=== PATIENT | female | born 1955 | race Caucasian/White ===

== ENCOUNTER → 2016-09-23 | Outpatient (CLI) | payer MEDICARE, BC ==
--- NOTE | 2016-09-24 07:46 | MM ---
Reason for exam: screening (asymptomatic). Last mammogram was performed 1 year and 3 months ago. History: Patient is postmenopausal. Family history of breast cancer in maternal cousin and breast cancer in maternal aunt at age 58. Took hormonal contraceptives for 9 years beginning at age 19. Physical Findings: A clinical breast exam by your physician is recommended on an annual basis and results should be correlated with mammographic findings. MG 3D Screening Mammo W/Cad Bilateral CC and MLO view(s) were taken. XCCL view(s) were taken of the right breast. Prior study comparison: June 27, 2015, left breast MG 3d work up w/cad LT. June 24, 2015, bilateral MG screening mammo w CAD. There are scattered fibroglandular densities. There is no discrete abnormality. No significant changes when compared with prior studies. ASSESSMENT: Negative, BI-RAD 1 RECOMMENDATION: Routine screening mammogram of both breasts in 1 year.
== END | disposition home or self-care (01) ==
LOC: RADMAMWWP 14:28
PROVIDERS: ATTEND Family Medicine
DX: Z12.31 Encounter for screening mammogram for malignant neoplasm of breast (principal)
CPT/HCPCS: 77063; G0202

== ENCOUNTER → 2016-12-08 | Outpatient (CLI) | payer MEDICARE, BC ==
--- NOTE | 2016-12-08 15:18 | XR ---
Cervical spine HISTORY: Neck pain 5 views of the cervical spine on 6 images No comparisons There is loss of normal cervical lordosis. Minimal retrolisthesis grade 1 at C5-6. There is loss of d isc height at C5-6, multilevel spondylosis is present. Cervical vertebral bodies show preserved heigh t. Bone mineralization is mildly reduced. No evident foraminal encroachment. IMPRESSION: Degenerative disc disease. Osteopenia.
--- NOTE | 2016-12-08 15:30 | XR ---
Thoracic spine HISTORY: Back pain 3 views of the thoracic spine on 5 images No comparisons There is a slight spinal curvature. Multilevel spondylosis is present. Bone mineralization is reduced . Thoracic vertebral bodies show preserved height. IMPRESSION: Osteopenia and degenerative disc disease. Slight spinal curvature.
== END | disposition home or self-care (01) ==
LOC: RADXRMAIN 12:05
PROVIDERS: ATTEND Physician Assistant
DX: M50.30 Other cervical disc degeneration, unspecified cervical region (principal); M85.88 Other specified disorders of bone density and structure, other site; M51.34 Other intervertebral disc degeneration, thoracic region
CPT/HCPCS: 72050; 72072

== ENCOUNTER → 2018-01-13 | Outpatient (CLI) | payer MEDICARE, BC ==
--- NOTE | 2018-01-16 11:04 | MM ---
Reason for exam: screening (asymptomatic). Last mammogram was performed 1 year and 4 months ago. History: Patient is postmenopausal. Family history of breast cancer in maternal cousin and breast cancer in maternal aunt at age 58. Took hormonal contraceptives for 9 years beginning at age 19. Physical Findings: A clinical breast exam by your physician is recommended on an annual basis and results should be correlated with mammographic findings. MG 3D Screening Mammo W/Cad Bilateral CC and MLO view(s) were taken. Prior study comparison: September 23, 2016, bilateral MG 3d screening mammo w/cad. June 27, 2015, left breast MG 3d work up w/cad LT. There are scattered fibroglandular densities. No significant changes when compared with prior studies. ASSESSMENT: Negative, BI-RAD 1 RECOMMENDATION: Routine screening mammogram of both breasts in 1 year.
== END | disposition home or self-care (01) ==
LOC: RADMAMWWP 10:03
PROVIDERS: ATTEND Family Medicine
DX: Z12.31 Encounter for screening mammogram for malignant neoplasm of breast (principal)
CPT/HCPCS: 77063; 77067

== ENCOUNTER → 2019-01-24 | Outpatient (CLI) | payer MEDICARE ==
--- NOTE | 2019-01-26 13:40 | MM ---
Reason for exam: screening (asymptomatic). Last mammogram was performed 1 year ago. History: Patient is postmenopausal. Family history of breast cancer in maternal cousin and breast cancer in maternal aunt at age 58. Took hormonal contraceptives for 9 years beginning at age 19. Physical Findings: A clinical breast exam by your physician is recommended on an annual basis and results should be correlated with mammographic findings. MG 3D Screening Mammo W/Cad Bilateral CC and MLO view(s) were taken. Prior study comparison: January 13, 2018, bilateral MG 3d screening mammo w/cad. September 23, 2016, bilateral MG 3d screening mammo w/cad. The breast tissue is heterogeneously dense. This may lower the sensitivity of mammography. No significant changes when compared with prior studies. ASSESSMENT: Benign, BI-RAD 2 RECOMMENDATION: Routine screening mammogram of both breasts in 1 year.
== END | disposition home or self-care (01) ==
LOC: RADMAMWWP 13:30
PROVIDERS: ATTEND Family Medicine
DX: Z12.31 Encounter for screening mammogram for malignant neoplasm of breast (principal)
CPT/HCPCS: 77063; 77067

== ENCOUNTER 2019-03-18 18:36 | Emergency (ER) | payer MEDICARE ==
[2019-03-18 18:46] VITALS: RESP 18
[2019-03-18] MEDS ORDERED: FAMOTIDINE 20 MG/2 ML VIAL IV STA (19:16)
[2019-03-18] MEDS ORDERED: methylPREDNISolone SOD SUCCI 125 MG/2 ML VIAL IV STA (19:16)
--- NOTE | 2019-03-18 19:26 | ED ---
Allergic Reaction HPI - General Chief complaint: Allergic Reaction Stated complaint: bee sting near eye Time Seen by Provider: 03/18/19 19:04 Source: patient, RN notes reviewed Mode of arrival: ambulatory Limitations: no limitations - History of Present Illness Initial Comments: This is a 63-year-old female who states she was stung in the right inferior orbit by a bee just prior to admission she took some Benadryl which she complains some swelling and redness to the area as well as some raspiness to her voice. No difficulty breathing no fevers chills nausea vomiting sweats palpitations or other symptoms. She states she has had bad bee sting reactions in the past. MD Complaint: allergic reaction - Related Data Home Medications Medication Instructions Recorded Confirmed ALPRAZolam 0.25 mg PO TID PRN 06/25/14 03/18/19 Cholecalciferol [Vitamin D3] 1,000 unit PO DAILY@1200 05/09/15 03/18/19 Albuterol Inhaler [Ventolin Hfa 1 - 2 puff INHALATION RT-Q6H PRN 03/18/19 03/18/19 Inhaler] Albuterol Nebulized [Ventolin 2.5 mg INHALATION RT-Q4H PRN 03/18/19 03/18/19 Nebulized] diphenhydrAMINE [Benadryl] 25 mg PO ONCE PRN 03/18/19 03/18/19 Previous Rx's Medication Instructions Recorded Famotidine [Pepcid] 20 mg PO BID #10 tablet 03/18/19 methylPREDNISolone Dose Pack 4 mg PO DIRECTED #21 package 03/18/19 [Medrol Dose Pack] Allergies Allergy/AdvReac Type Severity Reaction Status Date / Time ciprofloxacin [From Cipro] Allergy Rash/Hives Verified 03/18/19 19:06 ciprofloxacin HCl Allergy Rash/Hives Verified 03/18/19 19:06 [From Cipro] azithromycin [From Zithromax] AdvReac Rash/Hives Verified 03/18/19 19:06 egg AdvReac Rash/Hives Verified 03/18/19 19:06 erythromycin base AdvReac Rash/Hives Verified 03/18/19 19:06 garlic AdvReac Rash/Hives Verified 03/18/19 19:06 lactase [From Dairy Aid] AdvReac Rash/Hives Verified 03/18/19 19:06 levofloxacin AdvReac Rash/Hives Verified 03/18/19 19:06 milk AdvReac Rash/Hives Verified 03/18/19 19:06 nitrofurantoin AdvReac Rash/Hives Verified 03/18/19 19:06 [From Macrobid] nitrofurantoin AdvReac Rash/Hives Verified 03/18/19 19:06 macrocrystalline [From Macrobid] sertraline HCl [From Zoloft] AdvReac Rash/Hives Verified 03/18/19 19:06 shellfish derived AdvReac Rash/Hives Verified 03/18/19 19:06 Sulfa (Sulfonamide AdvReac Rash/Hives Verified 03/18/19 19:06 Antibiotics) thallium-201 AdvReac Unknown Verified 03/18/19 19:06 wheat AdvReac Rash/Hives Verified 03/18/19 19:06 yeast, dried [yeast] AdvReac Rash/Hives Verified 03/18/19 19:06 Review of Systems ROS Statement: Those systems with pertinent positive or pertinent negative responses have been documented in the HPI. ROS Other: All systems not noted in ROS Statement are negative. 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 Past Psychological History: Anxiety Smoking Status: Former smoker Past Alcohol Use History: None Reported Past Drug Use History: None Reported General Exam - General Exam Comments Initial Comments: This is a well-developed well-nourished awake alert oriented 3 female Limitations: no limitations General appearance: alert, anxious Head exam: Present: normocephalic Eye exam: Present: PERRL, EOMI, other (Mild erythema and edema to the inferior right orbit consistent with a bee sting no formed by seen no drainage or discharge) Pupils: Present: normal accommodation ENT exam: Present: normal exam, normal oropharynx, mucous membranes moist, other (The airway appears be patent) Neck exam: Present: normal inspection, full ROM, other (No stridor JVD or bruits). Absent: tenderness, meningismus, lymphadenopathy Respiratory exam: Present: normal lung sounds bilaterally. Absent: respiratory distress, wheezes, rales, rhonchi, stridor Cardiovascular Exam: Present: regular rate, normal rhythm, normal heart sounds. Absent: systolic murmur, diastolic murmur, rubs, gallop, clicks GI/Abdominal exam: Present: soft, normal bowel sounds. Absent: distended, tenderness, guarding, rebound, rigid Extremities exam: Present: normal inspection, full ROM, normal capillary refill. Absent: tenderness, pedal edema, joint swelling, calf tenderness Back exam: Present: normal inspection Neurological exam: Present: alert, oriented X3, CN II-XII intact Psychiatric exam: Present: normal affect, normal mood Skin exam: Present: warm, dry, intact, other (Erythema to the right orbital region as noted above). Absent: rash Course Vital Signs 03/18/19 03/18/19 18:43 19:38 Temperature 97.2 F L Pulse Rate 69 69 Respiratory 18 18 Rate Blood Pressure 174/97 134/80 O2 Sat by Pulse 99 98 Oximetry Medical Decision Making - Medical Decision Making I did reevaluate patient several occasions she feels much improved reexamination reveals diminished erythema to the right orbit. She will be discharged on appropriate medication we did discuss the medication. Disposition Clinical Impression: Bee sting reaction Disposition: HOME SELF-CARE Condition: Good Instructions (If sedation given, give patient instructions): Insect Bite or Sting (ED) Additional Instructions: Ice packs when necessary, prescription sent to [facility] Prescriptions: methylPREDNISolone Dose Pack [Medrol Dose Pack] 4 mg PO DIRECTED #21 package Famotidine [Pepcid] 20 mg PO BID #10 tablet Is patient prescribed a controlled substance at d/c from ED?: No Referrals: Erick Looney III, MD [Primary Care Provider] - 1-2 days
[2019-03-18 22:42] VITALS: BP 134/86; PULSE 70; TEMP 98
== END 2019-03-18 23:01 | disposition home or self-care (01) ==
LOC: EC 18:36
DX: T63.441A Toxic effect of venom of bees, accidental (unintentional), initial encounter (principal); Z87.891 Personal history of nicotine dependence; Z88.1 Allergy status to other antibiotic agents; Z88.2 Allergy status to sulfonamides; Z88.8 Allergy status to other drugs, medicaments and biological substances; Z91.02 Food additives allergy status; Z91.011 Allergy to milk products; Z91.012 Allergy to eggs; Z91.013 Allergy to seafood; Z91.018 Allergy to other foods; Z91.048 Other nonmedicinal substance allergy status
CPT/HCPCS: 99283; 96374; 96375; J2930

== ENCOUNTER → 2020-03-20 | Outpatient (CLI) | payer MEDICARE ==
--- NOTE | 2020-03-20 14:57 | US ---
EXAMINATION TYPE: US thyroid st tissue head/neck DATE OF EXAM: 03/20/2020 COMPARISON: NONE CLINICAL HISTORY: 63-year-old female E04.1 thyroid nodule. The patient states she had US in the past that showed nodules TECHNIQUE: Multiple sonographic images of the thyroid gland are obtained. FINDINGS: GLAND SIZE: Right Lobe: 5.2 x 1.5 x 2.3 cm Overall Parenchyma: homogenous Left Lobe: 4.9 x 1.6 x 2.2 cm Overall Parenchyma: homogeneous Isthmus Thickness: 0.6 cm NODULES RIGHT: # of nodules measured on right: 1 1. 0.5 X 0.3 x 0.4 cm cystic nodule at the upper pole with well-defined margins. This nodule is wi clarence than tall and shows no intranodular vascularity. Prior size: no previous LEFT: # of nodules measured on left: 1 1. 0.8 X 0.5 x 0.5 cm cystic nodule at the upper pole with well-defined margins; present with micro calcifications. This nodule is wider than tall and shows intranodular vascularity. Prior size: no previous ISTHMUS: # of nodules measured in the isthmus: 0 Bilateral neck scanned, no evidence of lymphadenopathy. IMPRESSION: Borderline to mild thyromegaly. A benign cyst is present on either side, largest on the left measurin g 8 mm. No other discrete nodules are seen. . The acuity. Healing
== END | disposition home or self-care (01) ==
LOC: RADUSWWP 12:17
PROVIDERS: ATTEND Family Medicine
DX: E04.1 Nontoxic single thyroid nodule (principal)
CPT/HCPCS: 76536

== ENCOUNTER → 2020-03-20 | Outpatient (CLI) | payer MEDICARE ==
--- NOTE | 2020-03-20 15:34 | XR ---
EXAMINATION TYPE: XR chest 2V DATE OF EXAM: 03/20/2020 COMPARISON: Prior chest x-ray 05/09/2015 HISTORY: J 68.3, G47.33, M 54.2 TECHNIQUE: Frontal and lateral views of the chest are obtained. FINDINGS: There is no focal air space opacity, pleural effusion, or pneumothorax seen. The cardiac silhouette size is within normal limits. Degenerative disc changes are noted in the visualized spin e. The osseous structures are intact. IMPRESSION: No acute cardiopulmonary process.
--- NOTE | 2020-03-20 15:39 | XR ---
Cervical spine HISTORY: Pain, trauma, J 68.3, M 54.2, G 47.33 3 views of the cervical spine, comparison to prior exam 12/08/2016 There is multilevel spondylosis and loss of disc height greatest at C5-6. Loss of normal cervical selene dosis may be due to muscle spasm, minimal retrolisthesis grade 1 C5-6 as on prior, there is facet art hropathy change. Prevertebral soft tissues are normal. Cervical vertebral bodies show preserved heigh t, bone mineralization is mildly reduced. IMPRESSION: Degenerative disc disease. Osteopenia. No fracture or subluxation.
== END | disposition home or self-care (01) ==
LOC: RADXRMAIN 12:21
PROVIDERS: ATTEND Family Medicine
DX: J68.3 Other acute and subacute respiratory conditions due to chemicals, gases, fumes and vapors (principal); G47.33 Obstructive sleep apnea (adult) (pediatric); M50.30 Other cervical disc degeneration, unspecified cervical region; M85.80 Other specified disorders of bone density and structure, unspecified site
CPT/HCPCS: 71046; 72040

== ENCOUNTER → 2020-05-20 | Outpatient (CLI) | payer MEDICARE ==
--- NOTE | 2020-05-21 11:17 | MM ---
Reason for exam: screening (asymptomatic). Last mammogram was performed 1 year and 4 months ago. History: Patient is postmenopausal. Family history of breast cancer in maternal cousin and breast cancer in maternal aunt at age 58. Took hormonal contraceptives for 9 years beginning at age 19. Physical Findings: A clinical breast exam by your physician is recommended on an annual basis and results should be correlated with mammographic findings. MG 3D Screening Mammo W/Cad Bilateral CC and MLO view(s) were taken. Prior study comparison: January 24, 2019, bilateral MG 3d screening mammo w/cad. January 13, 2018, bilateral MG 3d screening mammo w/cad. The breast tissue is heterogeneously dense. This may lower the sensitivity of mammography. There is chronic nodularity in the left breast, stable. No significant changes when compared with prior studies. ASSESSMENT: Benign, BI-RAD 2 RECOMMENDATION: Routine screening mammogram of both breasts in 1 year.
== END | disposition home or self-care (01) ==
LOC: RADMAMWWP 09:42
PROVIDERS: ATTEND Family Medicine
DX: Z12.31 Encounter for screening mammogram for malignant neoplasm of breast (principal)
CPT/HCPCS: 77063; 77067

== ENCOUNTER → 2020-07-09 | Outpatient (CLI) | payer MEDICARE ==
--- NOTE | 2020-07-09 15:36 | US ---
EXAMINATION TYPE: US thyroid st tissue head/neck DATE OF EXAM: 07/09/2020 COMPARISON: US 2019 CLINICAL HISTORY: Thyroid nodule E04.1. Thyroid nodules GLAND SIZE: Right Lobe: 4.7 x 1.8 x 1.9 cm Overall Parenchyma: homogenous Left Lobe: 5.2 x 1.6 x 1.7 cm Overall Parenchyma: homogeneous Isthmus Thickness: 0.6 cm NODULES RIGHT: # of nodules measured on right: 1 1. 0.3 X 0.2 x 0.4 cm superior pole cystic or almost completely cystic, hypoechoic nodule, which is wider than tall, with smooth margins, without echogenic foci. Prior size: 0.5 x 0.3 x 0.4 cm LEFT: # of nodules measured on left: 1 1. 0.9 X 0.4 x 0.7 cm mid pole cystic or almost completely cystic, hypoechoic nodule, which is wide r than tall, with smooth margins, with echogenic foci. Prior size: 0.8 x 0.5 x 0.5 cm ISTHMUS: # of nodules measured in the isthmus: 0 Bilateral neck scanned, no evidence of lymphadenopathy. IMPRESSION: Nonspecific thyroid nodularity.
== END | disposition home or self-care (01) ==
LOC: RADUSWWP 14:43
PROVIDERS: ATTEND Family Medicine
DX: E04.1 Nontoxic single thyroid nodule (principal)
CPT/HCPCS: 76536

== ENCOUNTER → 2021-05-01 | Outpatient (CLI) | payer MEDICARE ==
--- NOTE | 2021-05-01 12:06 | XR ---
EXAMINATION TYPE: XR foot complete RT DATE OF EXAM: 05/01/2021 COMPARISON: NONE HISTORY: Pain TECHNIQUE: Three views are submitted. FINDINGS: The osseous structures are intact. There is no acute fracture or dislocation. Diffuse osteopenia w ith narrowing of the DIP and PIP joints. Narrowing the first MTP joint. Calcaneal spurs noted. IMPRESSION: 1. No acute fracture or dislocation. If symptoms persist, follow-up exam in 7 to 10 days could be ob tained. 2. Arthropathy.
== END | disposition home or self-care (01) ==
LOC: RADXRMAIN 11:46
PROVIDERS: ATTEND Chiropractor
DX: M19.071 Primary osteoarthritis, right ankle and foot (principal)

== ENCOUNTER → 2023-04-05 | Outpatient (CLI) | payer MEDICARE ==
--- NOTE | 2023-04-05 19:28 | US ---
EXAMINATION TYPE: US thyroid st tissue head/neck DATE OF EXAM: 04/05/2023 COMPARISON: NONE CLINICAL INDICATION: Female, 67 years old with history of E04.1 NONTOXIC SINGLE THYROID NODULE; Thyro id nodule. GLAND SIZE: Right Lobe: 4.5 x 2.3 x 2.1 cm Overall Parenchyma: heterogenous Left Lobe: 4.6 x 1.8 x 1.8 cm Overall Parenchyma: heterogenous Isthmus Thickness: 0.44 cm NODULES RIGHT: # of nodules measured on right: 1 1. 0.4 X 0.5 x 0.3 cm, lower medial, cystic or almost completely cystic, hypoechoic nodule, which i s wider than tall, with smooth margins, without echogenic foci. Prior size: does not correlate LEFT: # of nodules measured on left: 1. Additional less than 5 mm nodule seen, not measured. 1. 0.9 X 0.9 x 0.4 cm, lateral mid, cystic or almost completely cystic, anechoic nodule, which is w ider than tall, with smooth margins, with echogenic foci. Prior size: 0.9 x 0.4 x 0.7 cm ISTHMUS: # of nodules measured in the isthmus: 0 Bilateral neck scanned, no evidence of lymphadenopathy. IMPRESSION: 1. Subcentimeter nodules present bilaterally. No suspicious nodules identified.
== END | disposition home or self-care (01) ==
LOC: RADUSWWP 15:11
PROVIDERS: ATTEND Family Medicine
DX: E04.2 Nontoxic multinodular goiter (principal)
CPT/HCPCS: 76536

== ENCOUNTER → 2023-04-05 | Outpatient (CLI) | payer MEDICARE ==
--- NOTE | 2023-04-07 09:31 | MM ---
Reason for Exam: Screening (asymptomatic). Last mammogram was performed 2 year(s) and 10 month(s) ago. Patient History: Menarche at age 13. First Full-Term at age 29. Postmenopausal. Hormonal Contraceptives for 9 years from age 19 until age 28. Maternal cousin had breast cancer. Maternal aunt had breast cancer, age 58. Risk Values: Nica 5 year model risk: 1.9%. NCI Lifetime model risk: 6.4%. Prior Study Comparison: 01/13/2018 Bilateral Screening Mammogram, [facility]. 01/24/2019 Bilateral Screening Mammogram, [facility]. 05/20/2020 Bilateral Screening Mammogram, [facility]. Tissue Density: The breast tissue is heterogeneously dense. This may lower the sensitivity of mammography. Findings: Analyzed By CAD. There is no suspicious group of microcalcifications or new suspicious mass in either breast. Overall Assessment: Negative, BI-RAD 1 Management: Screening Mammogram of both breasts in 1 year. . Patient should continue monthly self-breast exams. A clinical breast exam by your physician is recommended on an annual basis. This exam should not preclude additional follow-up of suspicious palpable abnormalities. Note on Nica scores and lifetime risk: 1. A Nica score greater than 3% is considered moderate risk. If this is the case, consider specialist referral to assess eligibility for a risk reducing agent. 2. If overall lifetime risk for the development of breast cancer is 20% or higher, the patient may qualify for future screening with alternating mammogram and breast MRI. Electronically signed and approved by: Eduard Fam M.D. Radiologis
== END | disposition home or self-care (01) ==
LOC: RADMAMWWP 15:09
PROVIDERS: ATTEND Family Medicine
DX: Z12.31 Encounter for screening mammogram for malignant neoplasm of breast (principal); Z78.0 Asymptomatic menopausal state; Z80.3 Family history of malignant neoplasm of breast
CPT/HCPCS: 77063; 77067

== ENCOUNTER 2024-09-27 14:03 | Emergency (ER) | payer MEDICARE ==
--- NOTE | 2024-09-27 14:57 | XR ---
EXAMINATION TYPE: XR chest 2V DATE OF EXAM: 09/27/2024 CLINICAL INDICATION: Female, 69 years old with history of cough, TECHNIQUE: Frontal and lateral views of the chest are obtained. COMPARISON: Chest x-ray March 20, 2020 FINDINGS: Overlying bra strap is present. There is no focal air space opacity, pleural effusion, or p neumothorax seen. The cardiac silhouette size remains within normal limits. The osseous structures are intact. IMPRESSION: No acute pulmonary process. [facility], , 09/27/2024 2:54 PM
[2024-09-27 15:03] LABS: Influenza A Detected (Not Detectd); Influenza B Not Detected (Not Detectd); RSV Not Detected (Not Detectd)
--- NOTE | 2024-09-27 15:29 | ED ---
URI HPI - General Chief Complaint: Upper Respiratory Infection Stated Complaint: SOB Time Seen by Provider: 09/27/24 14:32 Source: patient, RN notes reviewed Mode of arrival: ambulatory Limitations: no limitations - History of Present Illness Initial Comments: 69-year-old female presents emerged part complaint cough and cold-like symptoms. Patient has been sick for several days. Patient's had fever chills wheezing she does have a history of asthma. Denies chest pain states that she is very achy all over has increasing nasal congestion and mild sore throat. - Related Data Home Medications Medication Instructions Recorded Confirmed ALPRAZolam 0.25 mg PO TID PRN 06/25/14 03/18/19 Cholecalciferol [Vitamin D3] 1,000 unit PO DAILY@1200 05/09/15 03/18/19 Albuterol Inhaler [Ventolin Hfa 1 - 2 puff INHALATION RT-Q6H PRN 03/18/19 03/18/19 Inhaler] Albuterol Nebulized [Ventolin 2.5 mg INHALATION RT-Q4H PRN 03/18/19 03/18/19 Nebulized] diphenhydrAMINE [Benadryl] 25 mg PO ONCE PRN 03/18/19 03/18/19 Previous Rx's Medication Instructions Recorded Famotidine [Pepcid] 20 mg PO BID #10 tablet 03/18/19 methylPREDNISolone Dose Pack 4 mg PO DIRECTED #21 package 03/18/19 [Medrol Dose Pack] Albuterol Nebulized [Ventolin 2.5 mg INHALATION Q4H PRN #75 ml 09/27/24 Nebulized] Allergies Allergy/AdvReac Type Severity Reaction Status Date / Time ciprofloxacin [From Cipro] Allergy Rash/Hives Verified 03/18/19 19:06 ciprofloxacin HCl Allergy Rash/Hives Verified 03/18/19 19:06 [From Cipro] azithromycin [From Zithromax] AdvReac Rash/Hives Verified 03/18/19 19:06 egg AdvReac Rash/Hives Verified 03/18/19 19:06 erythromycin base AdvReac Rash/Hives Verified 03/18/19 19:06 garlic AdvReac Rash/Hives Verified 03/18/19 19:06 Iodinated Contrast Media AdvReac Unknown Verified 09/27/24 14:12 lactase [From Dairy Aid] AdvReac Rash/Hives Verified 03/18/19 19:06 levofloxacin AdvReac Rash/Hives Verified 03/18/19 19:06 milk AdvReac Rash/Hives Verified 03/18/19 19:06 nitrofurantoin AdvReac Rash/Hives Verified 03/18/19 19:06 [From Macrobid] nitrofurantoin AdvReac Rash/Hives Verified 03/18/19 19:06 macrocrystalline [From Macrobid] sertraline HCl [From Zoloft] AdvReac Rash/Hives Verified 03/18/19 19:06 shellfish derived AdvReac Rash/Hives Verified 03/18/19 19:06 Sulfa (Sulfonamide AdvReac Rash/Hives Verified 03/18/19 19:06 Antibiotics) [id number] AdvReac Unknown Verified 03/18/19 19:06 wheat AdvReac Rash/Hives Verified 03/18/19 19:06 yeast, dried [yeast] AdvReac Rash/Hives Verified 03/18/19 19:06 Review of Systems ROS Statement: Those systems with pertinent positive or pertinent negative responses have been documented in the HPI. ROS Other: All systems not noted in ROS Statement are negative. 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 Past Psychological History: Anxiety Smoking Status: Never smoker Past Alcohol Use History: None Reported Past Drug Use History: None Reported General Exam Limitations: no limitations General appearance: alert, in no apparent distress Head exam: Present: atraumatic, normocephalic, normal inspection Eye exam: Present: normal appearance, PERRL, EOMI. Absent: scleral icterus, conjunctival injection, periorbital swelling ENT exam: Present: normal exam, normal oropharynx, mucous membranes moist Neck exam: Present: normal inspection, full ROM. Absent: tenderness, meningismus, lymphadenopathy Respiratory exam: Present: wheezes. Absent: normal lung sounds bilaterally, respiratory distress, rales, rhonchi, stridor Cardiovascular Exam: Present: regular rate, normal rhythm, normal heart sounds. Absent: systolic murmur, diastolic murmur, rubs, gallop, clicks Course Vital Signs 09/27/24 09/27/24 09/27/24 14:08 16:02 16:10 Temperature 99.0 F Pulse Rate 82 72 73 Respiratory 18 Rate Blood Pressure 121/77 O2 Sat by Pulse 97 Oximetry 09/27/24 16:14 Temperature 98.1 F Pulse Rate 77 Respiratory 16 Rate Blood Pressure 103/65 O2 Sat by Pulse 98 Oximetry Medical Decision Making - Medical Decision Making Was pt. sent in by a medical professional or institution (, JEFFREY, PRODUCT ADVISOR, urgent care, hospital, or snf...) When possible be specific @ -No Did you speak to anyone other than the patient for history (EMS, parent, family, police, friend...)? What history was obtained from this source @ -No Did you review nursing and triage notes (agree or disagree)? Why? @ -I reviewed and agree with nursing and triage notes Were old charts reviewed (outside hosp., previous admission, EMS record, old EKG, old radiological studies, urgent care reports/EKG's, snf records)? Report findings @ -No old charts were reviewed Differential Diagnosis (chest pain, altered mental status, abdominal pain women, abdominal pain men, vaginal bleeding, weakness, fever, dyspnea, syncope, headache, dizziness, GI bleed, back pain, seizure, CVA, palpatations, mental health, musculoskeletal)? @ -COVID 19, RSV, influenza, pneumonia, acute bronchitis, URI, this list is not all inclusive EKG interpreted by me (3pts min.). @ -None X-rays interpreted by me (1pt min.). @ -Chest x-ray has no acute cardiopulmonary process no infiltrate CT interpreted by me (1pt min.). @ -None done U/S interpreted by me (1pt. min.). @ -None done What testing was considered but not performed or refused? (CT, X-rays, U/S, labs)? Why? @ -None What meds were considered but not given or refused? Why? @ -None Did you discuss the management of the patient with other professionals (professionals i.e. JEFFREY Santana, PRODUCT ADVISOR, lab, RT, psych nurse, social services technician, mussel opener, teacher, accounts officer, showcase trimmer)? Give summary @ -No Was smoking cessation discussed for >3mins.? @ -No Was critical care preformed (if so, how long)? @ -No Were there social determinants of health that impacted care today? How? (Homelessness, low income, unemployed, alcoholism, drug addiction, transportation, low edu. Level, literacy, decrease access to med. care, detention, rehab)? @ -No Was there de-escalation of care discussed even if they declined (Discuss DNR or withdrawal of care, Hospice)? DNR status @ -No What co-morbidities impacted this encounter? (DM, HTN, Smoking, COPD, CAD, Cancer, CVA, ARF, Chemo, Hep., AIDS, mental health diagnosis, sleep apnea, morbid obesity)? @ -Asthma Was patient admitted / discharged? Hospital course, mention meds given and route, prescriptions, significant lab abnormalities, going to OR and other pertinent info. @ -Discharge patient is influenza A positive. Patient is out of the window for Tamiflu. Patient feels improved after albuterol treatment will be given refill of her albuterol nebulizer treatments. Undiagnosed new problem with uncertain prognosis? @ -No Drug Therapy requiring intensive monitoring for toxicity (Heparin, Nitro, Insulin, Cardizem)? @ -No Were any procedures done? @ -No Diagnosis/symptom? @ -Influenza Acute, or Chronic, or Acute on Chronic? @ -Acute Uncomplicated (without systemic symptoms) or Complicated (systemic symptoms)? @ -Uncomplicated Side effects of treatment? @ -No Exacerbation, Progression, or Severe Exacerbation? @ -No Poses a threat to life or bodily function? How? (Chest pain, USA, MS, pneumonia, PE, COPD, DKA, ARF, appy, cholecystitis, CVA, Diverticulitis, Homicidal, Suicidal, threat to staff... and all critical care pts) @ -No - Lab Data Lab Results 09/27/24 Range/Units 14:21 Influenza Type A (PCR) Detected A (Not Detectd) Influenza Type B (PCR) Not Detected (Not Detectd) RSV (PCR) Not Detected (Not Detectd) SARS-CoV-2 (PCR) Not Detected (Not Detectd) Disposition Clinical Impression: Influenza A Disposition: HOME SELF-CARE Condition: Stable Instructions (If sedation given, give patient instructions): Influenza (ED) Additional Instructions: Please return to the Emergency Department if symptoms worsen or any other concerns. Prescriptions: Albuterol Nebulized [Ventolin Nebulized] 2.5 mg INHALATION Q4H PRN #75 ml PRN Reason: difficulty in breathing Is patient prescribed a controlled substance at d/c from ED?: No Referrals: Venecia Dao MD [Primary Care Provider] - 1-2 days Time of Disposition: 15:29
[2024-09-27] MEDS: IPRATROPIUM-ALBUTEROL 3 ML NEB INHALATION STA (16:01)
[2024-09-27 16:16] VITALS: BP 103/65; PULSE 77; RESP 16; TEMP 98.1
== END 2024-09-27 16:16 | disposition home or self-care (01) ==
LOC: EC 14:03
DX: J10.1 Influenza due to other identified influenza virus with other respiratory manifestations (principal); J45.909 Unspecified asthma, uncomplicated; Z88.1 Allergy status to other antibiotic agents; Z88.2 Allergy status to sulfonamides; Z91.011 Allergy to milk products; Z91.012 Allergy to eggs; Z91.013 Allergy to seafood; Z91.018 Allergy to other foods; Z91.041 Radiographic dye allergy status; Z88.8 Allergy status to other drugs, medicaments and biological substances
CPT/HCPCS: 71046; 87636; 94640; 99285

== ENCOUNTER 2024-10-07 11:04 | Emergency (ER) | payer MEDICARE ==
--- NOTE | 2024-10-07 13:08 | US ---
EXAMINATION TYPE: US venous doppler duplex LE RT DATE OF EXAM: 10/07/2024 12:24 PM COMPARISON: NONE CLINICAL INDICATION: Female, 69 years old with history of pain; obvious inflamed varicose veins on la teral legs, no h/o dvt TECHNIQUE: The lower extremity deep venous system is examined utilizing real time linear array sonog génesis with graded compression, color doppler sonography, and spectral doppler. SIDE PERFORMED: Right FINDINGS: VESSELS IMAGED: Common Femoral Vein Deep Femoral Vein Greater Saphenous Vein * Femoral Vein Popliteal Vein Small Saphenous Vein * Proximal Calf Veins (* superficial vessels) Right Leg: Negative for DVT, Color Doppler imaging shows patency of the vessels. Spectral waveforms are within normal limits. internal echoes that did not compress, with no internal blood flow seen, on lateral calf/lateral kn ee within varicose vein - not near the deep system at all IMPRESSION: 1. No evidence of acute deep vein thrombosis of the right lower extremity. Thrombophlebitis of the peripheral varicose veins is present. [facility], , 10/07/2024 1:06 PM
--- NOTE | 2024-10-07 13:52 | ED ---
General Adult HPI - General Chief complaint: Recheck/Abnormal Lab/Rx Stated complaint: R leg issue Time Seen by Provider: 10/07/24 12:32 Source: patient, RN notes reviewed Mode of arrival: ambulatory Limitations: no limitations - History of Present Illness Initial comments: Patient is a 69-year-old female present to the emergency department with concern s with right leg pain. Onset of symptoms was 2 to 3 days ago. Patient has right lower leg anterior redness and pain and minimal swelling. Patient is concerned for blood clot there. Patient has history of previous vein problems however no history of previous blood clot. No chest pain or dyspnea. - Related Data Home Medications Medication Instructions Recorded Confirmed ALPRAZolam 0.25 mg PO TID PRN 06/25/14 03/18/19 Cholecalciferol [Vitamin D3] 1,000 unit PO DAILY@1200 05/09/15 03/18/19 Albuterol Inhaler [Ventolin Hfa 1 - 2 puff INHALATION RT-Q6H PRN 03/18/19 03/18/19 Inhaler] Albuterol Nebulized [Ventolin 2.5 mg INHALATION RT-Q4H PRN 03/18/19 03/18/19 Nebulized] diphenhydrAMINE [Benadryl] 25 mg PO ONCE PRN 03/18/19 03/18/19 Previous Rx's Medication Instructions Recorded Famotidine [Pepcid] 20 mg PO BID #10 tablet 03/18/19 methylPREDNISolone Dose Pack 4 mg PO DIRECTED #21 package 03/18/19 [Medrol Dose Pack] Albuterol Nebulized [Ventolin 2.5 mg INHALATION Q4H PRN #75 ml 09/27/24 Nebulized] Clopidogrel [Plavix] 75 mg PO DAILY #7 tablet 10/07/24 Allergies Allergy/AdvReac Type Severity Reaction Status Date / Time ciprofloxacin [From Cipro] Allergy Rash/Hives Verified 10/07/24 11:20 ciprofloxacin HCl Allergy Rash/Hives Verified 10/07/24 11:20 [From Cipro] azithromycin [From Zithromax] AdvReac Rash/Hives Verified 10/07/24 11:20 egg AdvReac Rash/Hives Verified 10/07/24 11:20 erythromycin base AdvReac Rash/Hives Verified 10/07/24 11:20 garlic AdvReac Rash/Hives Verified 10/07/24 11:20 Iodinated Contrast Media AdvReac Unknown Verified 10/07/24 11:20 lactase [From Dairy Aid] AdvReac Rash/Hives Verified 10/07/24 11:20 levofloxacin AdvReac Rash/Hives Verified 10/07/24 11:20 milk AdvReac Rash/Hives Verified 10/07/24 11:20 nitrofurantoin AdvReac Rash/Hives Verified 10/07/24 11:20 [From Macrobid] nitrofurantoin AdvReac Rash/Hives Verified 10/07/24 11:20 macrocrystalline [From Macrobid] sertraline HCl [From Zoloft] AdvReac Rash/Hives Verified 10/07/24 11:20 shellfish derived AdvReac Rash/Hives Verified 10/07/24 11:20 Sulfa (Sulfonamide AdvReac Rash/Hives Verified 10/07/24 11:20 Antibiotics) [id number]-201 AdvReac Unknown Verified 10/07/24 11:20 wheat AdvReac Rash/Hives Verified 10/07/24 11:20 yeast, dried [yeast] AdvReac Rash/Hives Verified 10/07/24 11:20 Review of Systems ROS Statement: Those systems with pertinent positive or pertinent negative responses have been documented in the HPI. ROS Other: All systems not noted in ROS Statement are negative. 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 Past Psychological History: Anxiety Smoking Status: Never smoker Past Alcohol Use History: None Reported Past Drug Use History: None Reported General Exam Limitations: no limitations General appearance: alert, in no apparent distress Head exam: Present: normocephalic Eye exam: Present: normal appearance Neck exam: Present: normal inspection Respiratory exam: Present: normal lung sounds bilaterally Cardiovascular Exam: Present: regular rate, normal rhythm Expanded Peripheral pulses: 2+: Posterior Tibialis (R), Dorsalis Pedis (R) GI/Abdominal exam: Present: soft. Absent: tenderness Extremities exam: Present: other (Right lower leg anteriorly with trace erythema. There is mild fullness to the region with tenderness. Thrombophlebitis consistency). Absent: pedal edema, calf tenderness Neurological exam: Present: alert Psychiatric exam: Present: normal affect, normal mood Skin exam: Present: erythema (Trace right anterior lower leg) Course Vital Signs 10/07/24 11:17 Temperature 98.0 F Pulse Rate 79 Respiratory 18 Rate Blood Pressure 151/82 O2 Sat by Pulse 97 Oximetry Medical Decision Making - Medical Decision Making Was pt. sent in by a medical professional or institution (, PA, BRICK GRADER, urgent care, hospital, or skilled nursing...) When possible be specific @ -No Did you speak to anyone other than the patient for history (EMS, parent, family, police, friend...)? What history was obtained from this source @ -No Did you review nursing and triage notes (agree or disagree)? Why? @ -I reviewed and agree with nursing and triage notes Were old charts reviewed (outside hosp., previous admission, EMS record, old EKG, old radiological studies, urgent care reports/EKG's, skilled nursing records)? Report findings @ -No old charts were reviewed Differential Diagnosis (chest pain, altered mental status, abdominal pain women, abdominal pain men, vaginal bleeding, weakness, fever, dyspnea, syncope, headache, dizziness, GI bleed, back pain, seizure, CVA, palpatations, mental health, musculoskeletal)? @ -Differential Musculoskeletal Muscular strain, contusion, ligament sprain, fracture, arthritis, septic arthritis, bursitis, cellulitis, muscle spasm, nerve compression, DVT, arterial occlusion, herpes zoster, electrolyte abnormality, tumor.... This is not meant to be in all inclusive list EKG interpreted by me (3pts min.). @ -As above X-rays interpreted by me (1pt min.). @ -None done CT interpreted by me (1pt min.). @ -None done U/S interpreted by me (1pt. min.). @ -Ultrasound negative for DVT positive thrombophlebitis What testing was considered but not performed or refused? (CT, X-rays, U/S, labs)? Why? @ -None What meds were considered but not given or refused? Why? @ -None Did you discuss the management of the patient with other professionals (professionals i.e. , PA, BRICK GRADER, lab, RT, psych nurse, social contact worker, marshmallow runner, teacher, safety and security officer, case resource manager)? Give summary @ -No Was smoking cessation discussed for >3mins.? @ -No Was critical care preformed (if so, how long)? @ -No Were there social determinants of health that impacted care today? How? (Homelessness, low income, unemployed, alcoholism, drug addiction, transportation, low edu. Level, literacy, decrease access to med. care, long term, rehab)? @ -No Was there de-escalation of care discussed even if they declined (Discuss DNR or withdrawal of care, Hospice)? DNR status @ -No What co-morbidities impacted this encounter? (DM, HTN, Smoking, COPD, CAD, Cancer, CVA, ARF, Chemo, Hep., AIDS, mental health diagnosis, sleep apnea, morbid obesity)? @ -None Was patient admitted / discharged? Hospital course, mention meds given and rout e, prescriptions, significant lab abnormalities, going to OR and other pertinent info. @ -Patient presents with symptoms exam and ultrasound all consistent with thrombophlebitis. Patient will be discharged with 1 week of Plavix. Patient does not want pain medication. Patient updated on results and plan. Undiagnosed new problem with uncertain prognosis? @ -No Drug Therapy requiring intensive monitoring for toxicity (Heparin, Nitro, Insulin, Cardizem)? @ -No Were any procedures done? @ -No Diagnosis/symptom? @ -Superficial thrombophlebitis Acute, or Chronic, or Acute on Chronic? @ -Acute Uncomplicated (without systemic symptoms) or Complicated (systemic symptoms)? @ -Default Side effects of treatment? @ -No Exacerbation, Progression, or Severe Exacerbation? @ -No Poses a threat to life or bodily function? How? (Chest pain, USA, PR, pneumonia, PE, COPD, DKA, ARF, appy, cholecystitis, CVA, Diverticulitis, Homicidal, Suicidal, threat to staff... and all critical care pts) @ -No Disposition Clinical Impression: Superficial thrombophlebitis Disposition: HOME SELF-CARE Condition: Stable Instructions (If sedation given, give patient instructions): Superficial Thrombophlebitis (ED) Additional Instructions: Prescription sent to pharmacy. Please follow-up with primary care physician in the next day or 2 for recheck. Also follow-up with vascular, number provided. Return for chest pain or difficulty breathing, increased leg redness, pain or swelling, worsening symptoms or other concern. Prescriptions: Clopidogrel [Plavix] 75 mg PO DAILY #7 tablet Is patient prescribed a controlled substance at d/c from ED?: No Referrals: Venecia Dao MD [Primary Care Provider] - 1-2 days Loraine Serrano DO [STAFF PHYSICIAN] - 1-2 days Time of Disposition: 13:50
[2024-10-07 14:56] VITALS: BP 136/92; PULSE 72; RESP 16; TEMP 98.2
== END 2024-10-07 15:01 | disposition home or self-care (01) ==
LOC: EC 11:04
DX: I80.01 Phlebitis and thrombophlebitis of superficial vessels of right lower extremity (principal); Z88.1 Allergy status to other antibiotic agents; Z88.2 Allergy status to sulfonamides; Z91.011 Allergy to milk products; Z91.012 Allergy to eggs; Z91.013 Allergy to seafood; Z91.018 Allergy to other foods; Z91.041 Radiographic dye allergy status
CPT/HCPCS: 99283